=== PATIENT | female | born 1975 | race Caucasian/White ===

== ENCOUNTER 2018-09-26 12:56 | Emergency (ER) | payer OTHER ==
[~2018-09-26] VITALS: Ht 156.2 cm; Wt 52.2 kg
[2018-09-26 13:00] VITALS: BP 106/70
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
== END 2018-09-26 13:37 | disposition home or self-care (01) ==
LOC: ER 12:56
DX: S00.83XA Contusion of other part of head, initial encounter (principal); Y04.0XXA Assault by unarmed brawl or fight, initial encounter; Y93.01 Activity, walking, marching and hiking; Y92.148 Other place in prison as the place of occurrence of the external cause; Y99.8 Other external cause status
CPT/HCPCS: 99281

== ENCOUNTER 2019-04-18 14:34 | Emergency (ER) | payer OTHER ==
[~2019-04-18] VITALS: Ht 156.2 cm; Wt 51.7 kg
[2019-04-18 14:40] VITALS: BP 110/63
[2019-04-18] MEDS: IBUPROFEN 400 MG TABLET. PO ONE (15:11)
--- NOTE | 2019-04-18 15:52 | RAD ---
CT MAXILLOFACIAL WO CONTRAST History: Facial trauma. Nasal bone pain. Comparison: None. Technique: Noncontrast CT imaging was performed of the maxillofacial. Coronal and sagittal reconstructions were performed. Exposure: One or more of the following individualized dose reduction techniques were utilized for this examination: 1. Automated exposure control 2. Adjustment of the mA and/or kV according to patient size 3. Use of iterative reconstruction technique. Findings: Comminuted anterior nasal bone fracture. Minimal displacement of the fracture fragments. There is overlying soft tissue swelling and subcutaneous gas. No additional fracture. Orbits are unremarkable. Paranasal sinuses and mastoid air cells are clear. Imaged intracranial contents are unremarkable. Impression: 1. Acute comminuted anterior nasal bone fracture with overlying soft tissue swelling. Electronically signed by: Chay Bhatia DO (04/18/2019 3:49 PM) [id number]
[2019-04-18] MEDS ORDERED: IBUP800T19 PO (16:04)
--- NOTE | 2019-04-18 16:55 | PHYS DOC ---
Past History Past Medical History: Anxiety, Other Additional Past Medical Histor: ADHD Past Surgical History: Other Additional Past Surgical Histo: BLADDER Additional Smoking Information: 1/2-1 PACK/DAY Alcohol Use: Occasionally Drug Use: None Adult General Chief Complaint Chief Complaint: FACE PAIN HPI HPI Patient is a 43 yo f p/w cc of nose injury ran into [employer] at work no loc bleeding controlled pain moderate to severe nonradiating isolated to the nasal bridge. Current Medications Current Medications Current Medications Medications (Trade) Dose Ordered Sig/Ophelia Start Time Stop Time Status Last Admin Dose Admin Ibuprofen (Motrin) 400 mg 1X ONCE 04/18/19 15:00 04/18/19 15:07 DC 04/18/19 15:11 400 MG Allergies Allergies Allergies Coded Allergies Type Severity Reaction Last Updated Verified No Known Drug Allergies 09/26/18 No Physical Exam Physical Exam Constitutional: Well developed, well nourished, no acute distress, non-toxic appearance. [] HENT: Normocephalic, atraumatic, bilateral external ears normal, oropharynx moist, no oral exudates, nose overlying abasion 1 cm not suturable swelling deformity ecchymosis noted no septal hematoma Eyes: PERRLA, EOMI, conjunctiva normal, no discharge. [] Neck: Normal range of motion, no tenderness, supple, no stridor. [] Abdomen: Bowel sounds normal, soft, no tenderness, no masses, no pulsatile masses. [] Skin:as above Extremities: No tenderness, no cyanosis, no clubbing, ROM intact, no edema. [] Neurologic: Alert and oriented X 3, normal motor function, normal sensory function, no focal deficits noted. [] Psychologic: Affect normal, judgement normal, mood normal. [] Current Patient Data Vital Signs Vital Signs Date Time Temp Pulse Resp B/P (MAP) Pulse Ox O2 Delivery O2 Flow Rate FiO2 04/18/19 14:40 98.4 97 20 100 Room Air EKG EKG [] Radiology/Procedures Radiology/Procedures [] Impressions: Exposure: One or more of the following individualized dose reduction techniques were utilized for this examination: 1. Automated exposure control 2. Adjustment of the mA and/or kV according to patient size 3. Use of iterative reconstruction technique. Findings: Comminuted anterior nasal bone fracture. Minimal displacement of the fracture fragments. There is overlying soft tissue swelling and subcutaneous gas. No additional fracture. Orbits are unremarkable. Paranasal sinuses and mastoid air cells are clear. Imaged intracranial contents are unremarkable. Impression: 1. Acute comminuted anterior nasal bone fracture with overlying soft tissue swelling. Electronically signed by: Chay Bhatia DO (04/18/2019 3:49 PM) [id number] DICTATED AND SIGNED BY: CHAY BHATIA DO DATE: 04/18/19 1549 CC: ROLAND SALMERON; RAMSEY SELLERS MD ~ Course & Med Decision Making Course & Med Decision Making Pertinent Labs and Imaging studies reviewed. (See chart for details) []noted nasal bone fracture pt counseled on nasal bone precautions f/u ent 5-7 days, pt has workmans comp likely will follow through there, given name of local ent physician as well Dragon Disclaimer Dragon Disclaimer This electronic medical record was generated, in whole or in part, using a voice recognition dictation system. Departure Departure: Impression: Primary Impression: Nasal bone fracture Disposition: 01 HOME, SELF-CARE Condition: STABLE Referrals: FANG VARMA MD Patient Instructions: Nasal Fracture Additional Instructions: see ent doctor within 5-7 days. Scripts Ibuprofen (IBUPROFEN) 800 Mg Tablet 1 TAB PO TID PRN for PAIN, #20 TAB 0 Refills Prov: RAMSEY SELLERS MD 04/18/19 RAMSEY SELLERS MD Apr 18, 2019 16:54
== END 2019-04-18 16:08 | disposition home or self-care (01) ==
LOC: ER 14:34
DX: S02.2XXA Fracture of nasal bones, initial encounter for closed fracture (principal); F90.9 Attention-deficit hyperactivity disorder, unspecified type; F17.200 Nicotine dependence, unspecified, uncomplicated; W22.09XA Striking against other stationary object, initial encounter; Y93.89 Activity, other specified; Y92.89 Other specified places as the place of occurrence of the external cause; Y99.8 Other external cause status
CPT/HCPCS: 70486; 99284-25